=== PATIENT | female | born 1970 | race Caucasian/White ===

== ENCOUNTER 2017-11-04 08:00 | Day surgery (SDC) | payer OTHER ==
[~2017-11-04] VITALS: Ht 149.9 cm; Wt 87.1 kg
[2017-11-04 08:21] VITALS: BP 133/80
[2017-11-04 08:31] VITALS: BP 133/80
[2017-11-04 17:43] VITALS: BP 122/69
== END 2017-11-04 17:35 | disposition home or self-care (01) ==
LOC: DS 08:00 → NM 09:00 → DS 09:00 → OR 12:00 → DS 17:35
PROVIDERS: Surgery
PROC: 07B60ZX Excision of Left Axillary Lymphatic, Open Approach, Diagnostic (ICD-10-PCS; 2017-11-04)
PROC: 0HBU0ZZ Excision of Left Breast, Open Approach (ICD-10-PCS; principal; 2017-11-04 12:00)
DX: D05.12 Intraductal carcinoma in situ of left breast (principal); Z68.39 Body mass index [BMI] 39.0-39.9, adult
CPT/HCPCS: 88329; 88344; J0690; J2001; J2250; J2270; J2405; J2704; J3010; J3490; J7120; Q9968